=== PATIENT | female | born 2000 | race Hispanic/Latino ===

== ENCOUNTER 2019-04-10 01:57 | Emergency (ER) | payer MEDICAID, OTHER | END 2019-04-10 03:03 | disposition home or self-care (01) | LOC: EDH 01:57 | DX: T16.1XXA Foreign body in right ear, initial encounter (principal); Z72.0 Tobacco use; X58.XXXA Exposure to other specified factors, initial encounter; Y93.89 Activity, other specified; Y92.89 Other specified places as the place of occurrence of the external cause; Y99.8 Other external cause status | CPT/HCPCS: 69200 ==

== ENCOUNTER 2021-11-22 22:52 | Emergency (ER) | payer MEDICAID, OTHER ==
[~2021-11-22] VITALS: Ht 160 cm; Wt 96.6 kg
[2021-11-22 23:13] VITALS: BP 124/56
== END 2021-11-23 00:25 | disposition left against medical advice (07) ==
LOC: EDH 22:52
DX: O26.891 Other specified pregnancy related conditions, first trimester (principal); R10.2 Pelvic and perineal pain; Z3A.01 Less than 8 weeks gestation of pregnancy
CPT/HCPCS: 99281

== ENCOUNTER 2022-03-03 21:28 | Emergency (ER) | payer MEDICAID ==
[~2022-03-03] VITALS: Ht 160 cm; Wt 89.8 kg
[2022-03-03 22:07] LABS: APPEARANCE,URINE CLEAR (CLEAR); BILIRUBIN,URINE SMALL (NEGATIVE); COLOR,URINE YELLOW (YELLOW); GLUCOSE, URINE (UA) NEGATIVE (NEGATIVE); KETONES,URINE 5 mg/dL (NEGATIVE); LEUKOCYTE ESTERASE ,URINE TRACE (NEGATIVE); NITRATE,URINE NEGATIVE (NEGATIVE); OCCULT BLOOD,URINE MODERATE (NEGATIVE); PH,URINE 6.5 (5.0-8.0); PROTEIN,URINE 30 mg/dL (NEGATIVE)
[2022-03-03 22:13] LABS: BACTERIA,URINE Few /HPF (None Seen); CALCIUM OXALATE CRYSTALS,UR Many /LPF (None Seen); MUCUS,URINE Few LPF (None Seen); SQUAMOUS EPITHELIAL CELL,UR Few /HPF (0-2)
[2022-03-03 22:14] LABS: BASOPHILS % (AUTO) 0.3 % (0.0-5.0); EOSINOPHILS % (AUTO) 1.4 % (0.0-8.0); HEMATOCRIT 37.8 % (36-48); MEAN CORPUSCULAR HEMOGLOBIN 28.2 pg (27.0-33.0); MEAN CORPUSCULAR HGB CONC 33.9 g/dL (32.0-36.0); MEAN CORPUSCULAR VOLUME 83.3 fL (79-99); MONOCYTES % (AUTO) 7.5 % (3.0-13.0); PLATELET COUNT (AUTO) 312 K/uL (130-400); RED BLOOD CELL COUNT(AUTO) 4.54 MIL/uL (4.00-5.50); RED CELL DISTRIBUTION WIDTH 13.4 % (11.0-15.5); WHITE BLOOD COUNT (AUTO) 9.2 K/uL (4.8-10.8)
[2022-03-03 22:22] LABS: CREATININE 0.5 mg/dL (0.5-1.5); POTASSIUM 3.3 mmol/L (3.5-5.1)
[2022-03-03 22:48] LABS: ALBUMIN 2.5 g/dL (3.5-5.0); TOTAL PROTEIN, SERUM 7.1 g/dL (6.0-8.3)
[2022-03-03] MEDS ORDERED: ACETAMINOPHEN 500 MG TABLET PO ONE (23:30)
[2022-03-04] MEDS ORDERED: CEFTRIAXONE 1G VIAL IVP ONE
[2022-03-04] MEDS ORDERED: LIDOCAINE HCL-MPF 1% 2ML VIAL ONE (00:17)
[2022-03-04] MEDS ORDERED: CEFTRIAXONE 1G VIAL IM ONE (00:30)
[2022-03-04] MEDS ORDERED: ACET-66 PO (00:49)
[2022-03-04] MEDS ORDERED: CEPH500B PO (00:49)
[2022-03-04] MEDS ORDERED: DICY10 PO (00:49)
[2022-03-04] MEDS ORDERED: DICYCLOMINE HCL 20 MG TAB PO SCH (01:00)
[2022-03-04 01:04] VITALS: BP 119/73
== END 2022-03-04 01:17 | disposition home or self-care (01) ==
LOC: EDH 21:28
DX: O23.42 Unspecified infection of urinary tract in pregnancy, second trimester (principal); N39.0 Urinary tract infection, site not specified; Z20.822 Contact with and (suspected) exposure to COVID-19; Z3A.18 18 weeks gestation of pregnancy
CPT/HCPCS: 99284; 76805; 87635; 80053; 84702; 85025; 86850; 86900; 86901; 87210; 87804 ×2; 87797; 87486; 81001; 36415; 96372; C9803; J0696; J3490